=== PATIENT | female | born 1960 | race Hispanic/Latino ===

== ENCOUNTER 2021-06-20 13:13 | Outpatient (CLI) | payer OTHER | END 2021-06-20 13:14 | disposition home or self-care (01) | LOC: CSHWCC 13:13 | PROVIDERS: ATTEND Nurse Practitioner Family | DX: S81.802D Unspecified open wound, left lower leg, subsequent encounter (principal) | CPT/HCPCS: 11042; 11045; 97607 ==

== ENCOUNTER 2021-06-27 12:50 | Outpatient (CLI) | payer OTHER | END 2021-06-27 12:51 | disposition home or self-care (01) | LOC: CSHWCC 12:50 | PROVIDERS: ATTEND Nurse Practitioner Family | DX: S81.802D Unspecified open wound, left lower leg, subsequent encounter (principal) | CPT/HCPCS: 99213; G0463 ==

== ENCOUNTER 2021-07-16 09:47 | Outpatient (CLI) | payer OTHER | END 2021-07-16 09:48 | disposition home or self-care (01) | LOC: CSHWCC 09:47 | PROVIDERS: ATTEND Nurse Practitioner Family | DX: S81.802D Unspecified open wound, left lower leg, subsequent encounter (principal) | CPT/HCPCS: 99213; G0463 ==

== ENCOUNTER 2021-07-30 10:33 | Outpatient (CLI) | payer OTHER | END 2021-07-30 10:34 | disposition home or self-care (01) | LOC: CSHWCC 10:33 | PROVIDERS: ATTEND Nurse Practitioner Family | DX: S81.802D Unspecified open wound, left lower leg, subsequent encounter (principal) | CPT/HCPCS: 99213; G0463 ==

== ENCOUNTER 2021-08-21 13:51 | Outpatient (CLI) | payer OTHER | END 2021-08-21 13:52 | disposition home or self-care (01) | LOC: CSHWCC 13:51 | PROVIDERS: ATTEND Nurse Practitioner Family | DX: S81.802D Unspecified open wound, left lower leg, subsequent encounter (principal) | CPT/HCPCS: 99213; G0463 ==